=== PATIENT | female | born 1945 | race Caucasian/White ===

== ENCOUNTER 2016-11-06 05:39 | Day surgery (SDC) | payer MEDICARE, OTHER ==
[2016-10-30 09:57] LABS: HEMATOCRIT 39.4 % (36.0-48.0)
--- NOTE | ~2016-11-06 | OP ---
Record Of Operation [facility] [address] [place]. [address] NAME: PUSHPA GARCIA : 49 STATUS : [facility]#: [id number] AGE: 71 ADM/REG DATE : 11/06/16 MR#: [id number] REPORT SERV DATE: 11/06/16 DICTATED BY: WANG CURRAN DATE: 11/06/16 REPORT STATUS : Draft TRANSCRIBED BY: MODL DATE: 11/06/16 DATE OF PROCEDURE: 11/06/2016 ANESTHESIA: General. COMPLICATIONS: None. ESTIMATED BLOOD LOSS: 25 mL. PREOPERATIVE DIAGNOSIS: Stress urinary incontinence. POSTOPERATIVE DIAGNOSIS: Stress urinary incontinence. OPERATIONS: 1. Advantage Fit Suburethral Sling. 2. Cystoscopy. DESCRIPTION OF PROCEDURE: The patient was taken to the operating room and placed on the operating table in the Nikos stirrups. After adequate anesthesia, the patient was prepped and draped in the usual sterile fashion. The anterior vaginal wall was sharply and bluntly dissected off the underlying anterior fibromuscular tissue. Using the advantage Fit system, needles were inserted upward through the retropubic space and the mesh was placed just distal to the urethrovesical junction without any tension. The anterior compartment was irrigated. Hemostasis noted to be good. Excess anterior vaginal wall excised and reapproximated with running 2-0 Vicryl suture. Cystoscopy was performed with bilateral ureteral efflux of Pyridium dye and no damage or sutures to the bladder. Callejas and vaginal pack were placed. The patient tolerated the procedure well and taken to the recovery room in stable condition. DILEEP/DILLON Wang Curran M.D. / [id number] CC: Unruly Hubbard M.D. Clarissa Mashchak, M.D.
[~2016-11-06 05:39] MED LIST: *DENIES; ACET500CAP PO; ADVIL PO; CLARIT10 PO; ESTRADIOL; ESTROGEN INJ; NO HOME MEDS.; T PO; TUMSROLL PO; ZANTAC 150 PO; [UNRECOGNIZED DRUG - REMARK]
[2016-11-06 12:55] LABS: BASOPHILS 0.7 %; BASOPHILS ABSOLUTE 0.06 10/3/uL (0.0-0.16); EOSINOPHILS 2.8 %; EOSINOPHILS ABSOLUTE 0.25 10/3/uL (0.0-0.53); HEMOGLOBIN 11.7 g/dL (12.0-16.0); IMMATURE GRANULOCYTES 0.2 %; IMMATURE GRANULOCYTES ABSOLUTE 0.02 10/3/uL (0.0-0.11); LYMPHOCYTES 35.2 %; LYMPHOCYTES ABSOLUTE 3.18 10/3/uL (0.67-4.30); MEAN CORPUS HGB CONC 33.5 g/dL (32.0-36.0); MEAN CORPUSCULAR HEMOGLOB 28.6 pg (26.0-34.0); MEAN CORPUSCULAR VOLUME 85.3 fL (80-100); MEAN PLATELET VOLUME 11.6 fL (9.2-13.0); MONOCYTES 8.4 %; MONOCYTES ABSOLUTE 0.76 10/3/uL (0.21-1.20); NEUTROPHILS 52.7 %; NEUTROPHILS ABSOLUTE 4.76 10/3/uL (2.02-8.40); PLATELET COUNT 218 10/3/uL (150-400); RBC DISTRIBUTION WIDTH 13.4 % (12.0-16.0); RED CELL COUNT 4.09 10/6/uL (4.0-5.6)
[2016-11-06 12:56] LABS: HEMATOCRIT 34.9 % (36.0-48.0); MANUAL DIFF NO %
== END 2016-11-06 14:29 | disposition home or self-care (01) ==
LOC: SDC 05:39
PROVIDERS: Obstetrics & Gynecology Gynecology
PROC: 0TSD0ZZ Reposition Urethra, Open Approach (ICD-10-PCS; principal; 2016-11-06 07:15)
DX: N39.3 Stress incontinence (female) (male) (principal); R42 Dizziness and giddiness; G60.0 Hereditary motor and sensory neuropathy; F41.9 Anxiety disorder, unspecified; K21.9 Gastro-esophageal reflux disease without esophagitis; Z88.5 Allergy status to narcotic agent; Z88.8 Allergy status to other drugs, medicaments and biological substances; Z91.048 Other nonmedicinal substance allergy status; Z79.899 Other long term (current) drug therapy; Z90.89 Acquired absence of other organs; Z98.41 Cataract extraction status, right eye; Z98.42 Cataract extraction status, left eye; Z96.1 Presence of intraocular lens; Z90.710 Acquired absence of both cervix and uterus
CPT/HCPCS: 36415; 85014; 85018; 85025; 86850; 86900; 86901; 93005; A9270-GY; C1771; J0694; J1885; J2250; J2405; J3010